=== PATIENT | female | born 1935 | race Caucasian/White ===

== ENCOUNTER 2017-01-08 07:48 | Inpatient (IN) | payer MEDICARE ==
[2017-01-08] VITALS (7 sets, daily range): BP systolic 76–111; BP diastolic 47–62
[~2017-01-08] VITALS: Ht 160 cm; Wt 152.4 kg
[2017-01-08 08:08] LABS: HCO3 ABG 25 mmol/L (21-28); PO2 ABG 129 mmHg (65-108); SAT O2 ABG 98 % (92-99)
[2017-01-08 08:10] LABS: PCO2 ABG 81 mmHg (35-46); PH ABG 7.11 (7.35-7.45)
[2017-01-08] MEDS ORDERED: MIDAZOLAM IV ONE (08:13)
[2017-01-08] MEDS ORDERED: MIDAZOLAM PREMIX 100 ML IV ONE (08:30)
--- NOTE | 2017-01-08 08:40 | RAD ---
CT brain without contrast, CT cervical spine without contrast. History: Altered mental status, fell yesterday, respiratory distress CT brain CT scan of the brain was done without contrast. There are bubbles of gas in the subcutaneous tissues on the left possibly an acute injury, clinical correlation would be of benefit. A skull fracture is not identified. There is no intracranial hemorrhage or subdural hematoma. Ventricles are normal in size. There are mucus retention cysts in the maxillary sinuses. Remaining sinuses are clear. A definite skull fracture is not evident. CT C-spine Axial CT images were obtained through the cervical spine. Sagittal and coronal reconstructed images were reviewed. Patient is not typically positioned which makes orientation the C-spine slightly different. There is motion artifact from respiration. There is degenerative change and degenerative disc disease in the cervical spine. There is an infiltrate in the right upper lobe with bilateral pleural effusions. A chest x-ray could be of benefit. There is marked facet arthritis mainly on the right. There is subluxation at C3-4-5 probably related to the facet arthritis. Acute fracture is not identified. There is mild spinal stenosis at C5-6 with disc space narrowing and spurring at that level. There is also disc space narrowing at C6-7. Impression: 1. Bubbles of gas in the soft tissues extracranially on the left. 2. No intracranial hemorrhage or acute finding noted intracranially. 3. Patient's head is rotated which is not a typical positioning for the CT C-spine. 4. No C-spine fracture noted. 5. Degenerative disc disease at C5-6 and C6-7 with spinal stenosis at C5-6. 6. Subluxation at C4-5 probably degenerative from the facet arthritis. 7. Right upper lobe infiltrate with bilateral pleural effusions. One or more of the following individualized dose reduction techniques were utilized for this examination: 1. Automated exposure control 2. Adjustment of the mA and/or kV according to patient size 3. Use of iterative reconstruction technique
[2017-01-08] MEDS ORDERED: FERR-26 PO (08:43)
[2017-01-08] MEDS ORDERED: ATOR40TA59 PO (08:43)
[2017-01-08] MEDS ORDERED: SENN8.6T99 PO (08:43)
[2017-01-08] MEDS ORDERED: FLUC150T PO (08:43)
[2017-01-08] MEDS ORDERED: POLY255P PO (08:43)
[2017-01-08] MEDS ORDERED: MAGN400O7 PO (08:43)
[2017-01-08] MEDS ORDERED: ALPR0.254 PO (08:43)
[2017-01-08] MEDS ORDERED: ASPI-630 PO (08:43)
[2017-01-08] MEDS ORDERED: MELA3TAB2 PO (08:43)
[2017-01-08] MEDS ORDERED: INSU100C SQ (08:43)
[2017-01-08] MEDS ORDERED: DILT180C2 PO (08:43)
[2017-01-08] MEDS ORDERED: NYST15PO9 TP (08:43)
[2017-01-08] MEDS ORDERED: CARV12.52 PO (08:43)
[2017-01-08] MEDS ORDERED: MAGN30OR PO (08:43)
[2017-01-08] MEDS ORDERED: HYDR-2758 PO (08:43)
[2017-01-08] MEDS ORDERED: INSU100V8 SQ (08:43)
[2017-01-08] MEDS ORDERED: CIPR250T30 PO (08:43)
[2017-01-08] MEDS ORDERED: MULT1TAB52 PO (08:43)
[2017-01-08] MEDS ORDERED: TRAZ50TA15 PO (08:43)
[2017-01-08] MEDS ORDERED: BISA10SU55 RC (08:43)
[2017-01-08] MEDS ORDERED: APIX2.5T PO (08:43)
[2017-01-08] MEDS ORDERED: LACT1CAP6 PO (08:43)
[2017-01-08] MEDS ORDERED: ALLO100T PO (08:43)
[2017-01-08] MEDS ORDERED: NA P133E2 RC (08:43)
[2017-01-08] MEDS ORDERED: CHOL10003 PO (08:43)
[2017-01-08] MEDS ORDERED: BUME2TAB PO (08:43)
[2017-01-08] MEDS ORDERED: FUROSEMIDE 40 MG/4 ML VIAL. IVP ONE (08:45)
[2017-01-08] MEDS ORDERED: VANCOMYCIN PER PHARMACY MC PRN (09:00)
[2017-01-08] MEDS ORDERED: levOFLOXacin PER PHARMACY. MC PRN (09:00)
[2017-01-08] MEDS ORDERED: PIP/TAZO PER PHARMACY MC PRN (09:00)
--- NOTE | 2017-01-08 09:03 | RAD ---
AP chest. History: Short of air AP view was taken of the chest. The heart is enlarged. There is pulmonary vascular congestion. There are bilateral effusions. There is atelectasis or infiltrate or edema in the lung bases. Impression: 1. Cardiomegaly and vascular congestion suggests heart failure. 2. Bilateral effusions. 3. Atelectasis or infiltrate in the lung bases.
[2017-01-08] MEDS ORDERED: PIPERACILLIN/TAZOBACTAM 4.5 GM in IV NORMAL SALINE 100ML 100 ML IV ONE (09:15)
[2017-01-08] MEDS ORDERED: MORPHINE SULFATE 2 MG/ML DISP.SYRIN. IV PRN ×2 (09:15→16:15)
[2017-01-08] MEDS ORDERED: VANCOMYCIN 2 GM in IV NORMAL SALINE 500ML BAG 500 ML IV ONE (09:15)
[2017-01-08] MEDS ORDERED: ONDANSETRON PF 4 MG/2 ML VIAL. IV PRN ×2 (09:15→16:15)
[2017-01-08] MEDS ORDERED: ACETAMINOPHEN 325 MG TABLET. PO PRN ×2 (09:15→16:15)
[2017-01-08] MEDS ORDERED: IPRATRPIUM/ALBUTEROL 0.5/2.5MG 3 ML NEBU. NEB ONE (09:30)
[2017-01-08] MEDS ORDERED: methylPREDNISolone SOD SUCC PF 125 MG/2 ML VIAL. IV ONE (09:30)
[2017-01-08 09:33] LABS: BILIRUBIN,URINE NEGATIVE (NEG); GLUCOSE,URINE 100 mg/dL (NEG); NITRITE,URINE NEGATIVE (NEG); PROTEIN,URINE NEGATIVE (NEG-TRACE); UROBILINOGEN,URINE 0.2 mg/dL (0.2 mg/dL)
[2017-01-08] MEDS ORDERED: DEXTROSE 50% 25 GM / 50ML DISP.SYRIN. IV PRN ×2 (09:45→16:30)
[2017-01-08 09:48] LABS: ETHANOL < 10 mg/dL (0-10)
[2017-01-08 09:49] LABS: ALBUMIN 2.9 g/dL (3.4-5.0); CALCIUM 9.1 mg/dL (8.5-10.1); CREATININE 2.2 mg/dL (0.6-1.0); GFR 21.5; MAGNESIUM 2.2 mg/dL (1.8-2.4); TOTAL BILIRUBIN 0.3 mg/dL (0.2-1.0)
[2017-01-08 09:51] LABS: BACTERIA,URINE 0 /HPF (0-FEW); RBC,URINE 0 /HPF (0-2); SQUAMOUS EPITHELIAL CELL,UR FEW /LPF; WBC,URINE 0 /HPF (0-4)
[2017-01-08 09:55] LABS: BARBITURATES NEG (NEG); BENZODIAZEPINES NEG (NEG); CANNABINOIDS NEG (NEG); COCAINE NEG (NEG); METHADONE NEG (NEG); OPIATES POS (NEG); PHENCYCLIDINE NEG (NEG)
[2017-01-08 09:55] LABS: TOTAL PROTEIN 5.7 g/dL (6.4-8.2)
[2017-01-08 10:00] LABS: INR 1.2 (0.8-1.1); PROTHROMBIN TIME PATIENT 14.7 SEC (11.7-14.0)
[2017-01-08 10:09] LABS: CORRECTED PCO2 ABG 36 mmHg; CORRECTED PH ABG 7.41; CORRECTED PO2 ABG 135 mmHg; HCO3 ABG 23 mmol/L (21-28); PCO2 ABG 40 mmHg (35-46); PH ABG 7.37 (7.35-7.45); PO2 ABG 150 mmHg (65-108); SAT O2 ABG 99 % (92-99)
[2017-01-08 10:19] LABS: POTASSIUM 5.9 mmol/L (3.5-5.1)
--- NOTE | 2017-01-08 10:42 | EKG ---
[facility] [address] [place] [address] Test Date: 2017-01-08 Test Time: 08:59:40 Pat Name: HECTOR GONSALES Department: Room: Gender: F Trim Technician: : [id number] Requested By: ABEL MOORE Order Number: [id number] Reading MD: Measurements Intervals [place] Rate: 94 P: DC: QRS: -41 QRSD: 128 T: 165 QT: 382 QTc: 478 Interpretive Statements IRREGULAR RHYTHM, NO P-WAVE FOUND ABNORMAL LEFT AXIS DEVIATION LOW LIMB LEAD VOLTAGE NON SPECIFIC INTRAVENTRICULAR BLOCK QRS(T) CONTOUR ABNORMALITY CONSISTENT WITH ANTEROSEPTAL INFARCT PROBABLY OLD CONSISTENT WITH INFERIOR INFARCT PROBABLY OLD ABNORMAL ECG RI6.01 No previous ECG available for comparison
[2017-01-08] MEDS ORDERED: NALOXONE 2 MG/2 ML DISP.SYRIN. IV ONE (10:45)
[2017-01-08] MEDS: IPRATRPIUM/ALBUTEROL 0.5/2.5MG 3 ML NEBU. NEB SCH ×2 (11:51→15:28)
[2017-01-08] MEDS ORDERED: INSULIN ASPART 300 UNITS/3 ML INSULN.PEN SQ SCH ×2 (12:00→17:00)
--- NOTE | 2017-01-08 12:23 | PDOC2 ---
CONSULT Date of Consult Date of Consult DATE: 01/08/17 TIME: 12:12 Reason for Consult Reason for Consult: Resp failure Referring Physician Referring Physician: Dr Pitts Identification/Chief Complaint Chief Complaint altered MS Problems: History of Present Illness Reason for Visit: Ayesha is 81-year-old female who is morbidly obese and [facility] 2 [facility] emergency room with altered mental status. She was not hypoxic and was having 100% saturations on admission. Arterial blood gases obtained showed a pH of 7.11 PCO2 of 81. And a PaO2 of 129 with a bicarbonate of 25 100% FiO2. Patient was also using narcotics at the [facility], [place]. At that time decision was made to hold off on intubation and try BiPAP. She was placed on IPAP of 26 with a EPAP of 6 and a respiratory rate of 24. When her mental status. Gases revealed a pH of 7.37 with a PCO2 of 40 and a PO2 of 150 on 40% FiO2. Commands. Since chest x- ray was consistent with bilateral infiltrates and right lower lobe effusion. X- ray available for comparison. Highly abnormal labs with patient when of 95 and a creatinine of 2.2 and a potassium of 5.9. She had mildly increased troponin level. The recent fall and as her results CT head and CT spine was also performed. He was noted to have gas bubble in the soft tissues extracranially on her CT head. She did receive Narcan which did improve her mental status as well. His of care unit for further evaluation. I've spoken to the family was at the bedside and explained to them her critical illness. Past Medical History Pulmonary: No pertinent hx, Other (suspected KAYLEIGH) GI: No pertinent hx Heme/Onc: No pertinent hx Past Surgical History Past Surgical History no recent surgeries Family History Family History non contributry to lungs Social History # pack years (5-10) Current Problem List Problem List Problems Medical Problems: (1) Acute respiratory failure Status: Acute Current Medications Current Medications Current Medications Midazolam HCl 100 ml @ As Directed STK-MED ONCE IV ; Start 01/08/17 at 08:13; Stop 01/08/17 at 08:14; Status DC Midazolam HCl 100 ml @ 0 mls/hr 1X ONCE IV ; Start 01/08/17 at 08:30; Stop at 08:31; Status DC Furosemide (Lasix) 80 mg 1X ONCE IVP Last administered on 01/08/17 09:30; Start 01/08/17 at 08:45; Stop 01/08/17 at 08:46; Status DC Vancomycin HCl (Vanco Per Pharmacy) 1 each PRN DAILY PRN MC SEE COMMENTS; Start 01/08/17 at 09:00 Piperacillin Sod/ Tazobactam Sod (Zosyn Per Pharmacy) 1 each PRN DAILY PRN MC SEE COMMENTS; Start 01/08/17 at 09:00 Levofloxacin/ Dextrose (Levaquin Per Pharmacy) 1 each PRN DAILY PRN MC SEE COMMENTS; Start 01/08/17 at 09:00 Vancomycin HCl 2 gm/Sodium Chloride 500 ml @ 250 mls/hr 1X ONCE IV ; Start at 09:15; Stop 01/08/17 at 11:14; Status DC Levofloxacin/ Dextrose 150 ml @ 100 mls/hr 1X ONCE IV Last administered on 10:22; Start 01/08/17 at 09:15; Stop 01/08/17 at 10:44; Status DC Piperacillin Sod/ Tazobactam Sod 4.5 gm/Sodium Chloride 100 ml @ 200 mls/hr 1X ONCE IV Last administered on 01/08/17 09:49; Start 01/08/17 at 09:15; Stop 01/08/17 at 09:44; Status DC Ondansetron HCl (Zofran) 4 mg PRN Q8HRS PRN IV NAUSEA/VOMITING; Start 01/08/17 at 09:15; Stop 01/09/17 at 09:14 Morphine Sulfate 2 mg PRN Q2HR PRN IV PAIN; Start 01/08/17 at 09:15; Stop 01/09 at 09:14 Acetaminophen (Tylenol) 650 mg PRN Q4HRS PRN PO FEVER; Start 01/08/17 at 09:15 ; Stop 01/09/17 at 09:14 Albuterol/ Ipratropium (Duoneb) 3 ml RTQID NEB Last administered on 01/08/17 11:51; Start 01/08/17 at 12:00; Stop 01/09/17 at 11:59 Methylprednisolone Sodium Succinate (SOLU-Medrol 125MG VIAL) 125 mg 1X ONCE IV ; Start 01/08/17 at 09:30; Stop 01/08/17 at 09:41; Status DC Albuterol/ Ipratropium (Duoneb) 3 ml 1X ONCE NEB ; Start 01/08/17 at 09:30; Stop 01/08/17 at 09:39; Status DC Insulin Aspart (NovoLOG) 0-5 UNITS TIDWMEALS SQ ; Start 01/08/17 at 12:00 Dextrose (Dextrose 50%-Water Syringe) 12.5 gm PRN Q15MIN PRN IV SEE COMMENTS; Start 01/08/17 at 09:45 Naloxone HCl (Narcan) 2 mg 1X ONCE IV Last administered on 01/08/17t 08:07; Start 01/08/17 at 10:45; Stop 01/08/17 at 10:50; Status DC Active Scripts Active Reported Milk Of Magnesia (Magnesium Hydroxide) 400 Mg/5 Ml Oral.susp 30 Ml PO DAILY PRN Mag-Al Liquid (Magnesium Hydroxide/Al Hydrox) 30 Ml Oral.susp 30 Ml PO Q4HRS PRN Fleet Enema (Na Phos,M-B/Na Phos,Di-Ba) 133 Ml Enema 1 Each RC DAILY PRN Dulcolax (Bisacodyl) 10 Mg Supp.rect 10 Mg RC PRN DAILY PRN Alprazolam 0.25 Mg Tablet 1 Tab PO TID PRN Hydrocodone-Apap 5-325 (Hydrocodone Bit/Acetaminophen) 1 Each Tablet 1 Tab PO PRN Q6HRS PRN Atorvastatin Calcium 40 Mg Tablet 1 Tab PO QHS Carvedilol 12.5 Mg Tablet 1 Tab PO BID Aspirin 81 Mg Tab.chew 1 Tab PO DAILY Vitamin D3 (Cholecalciferol (Vitamin D3)) 1,000 Unit Tablet 1 Tab PO DAILY Cardizem Cd (Diltiazem Hcl) 180 Mg Cap.er.24h 1 Cap PO DAILY Humalog (Insulin Lispro) 100 Unit/1 Ml Cartridge 2-10 Unit SQ TID Ferrous Sulfate 325 Mg Tablet 1 Tab PO DAILY Allopurinol 100 Mg Tablet 1 Tab PO DAILY Nystatin 15 Gm Powder 1 Agnieszka TP BID Probiotic (Lactobacillus Acidophilus) 1 Each Capsule 1 Each PO BID Melatonin 3 Mg Tablet 5 Mg PO QHS Eliquis (Apixaban) 2.5 Mg Tablet 2.5 Mg PO BID Multivitamins (Multivitamin) 1 Each Tablet 1 Tab PO DAILY Bumetanide 2 Mg Tablet 1 Tab PO BID Polyethylene Glycol 3350 255 Gm Powder 17 Gm PO TID Trazodone Hcl 50 Mg Tablet 1 Tab PO QHS Senokot (Sennosides) 8.6 Mg Tablet 1 Tab PO BID Lantus (Insulin Glargine,Hum.rec.anlog) 100 Unit/1 Ml Vial 18 Unit SQ QHS Cipro (Ciprofloxacin Hcl) 250 Mg Tablet 1 Tab PO BID Diflucan (Fluconazole) 150 Mg Tablet 150 Mg PO DAILY Allergies Allergies: Coded Allergies: No Known Drug Allergies (Unverified , 01/08/17) ROS Review of System as discussed in my h/o present illness Physical Exam General: No acute distress HEENT: Atraumatic Lungs: Other (decrease bs) Heart: Regular rate Abdomen: Soft, Other (obese, edema of abdominal wall) Extremities: No clubbing, Other (2+edema) Skin: No rashes Vitals VITALS Vital Signs Date Time Temp Pulse Resp B/P (MAP) Pulse Ox O2 Delivery O2 Flow Rate FiO2 01/08/17 11:46 100 BiPAP/CPAP 01/08/17 09:39 88 27 141/62 (88) 01/08/17 07:48 94.4 94.4 Labs Labs Laboratory Tests Test 01/08/17 08:00 01/08/17 09:05 01/08/17 09:19 01/08/17 09:31 O2 Saturation 98 % (92-99) Arterial Blood pH 7.11 (7.35-7.45) Arterial Blood pCO2 at Patient Temp 81 mmHg (35-46) Arterial Blood pO2 at Patient Temp 129 mmHg (65-108) Arterial Blood HCO3 25 mmol/L (21-28) Arterial Blood Base Excess -6 mmol/L (-3-3) FiO2 100.0 Prothrombin Time 14.7 SEC (11.7-14.0) Prothromb Time International Ratio 1.2 (0.8-1.1) Activated Partial Thromboplast Time 23 SEC (24-38) Sodium Level 133 mmol/L (136-145) Potassium Level 5.9 mmol/L (3.5-5.1) Chloride Level 99 mmol/L (98-107) Carbon Dioxide Level 30 mmol/L (21-32) Anion Gap 4 (6-14) Blood Urea Nitrogen 95 mg/dL (7-20) Creatinine 2.2 mg/dL (0.6-1.0) Estimated GFR (Cockcroft-Gault) 21.5 BUN/Creatinine Ratio 43 (6-20) Glucose Level 356 mg/dL (70-99) Lactic Acid Level 0.8 mmol/L (0.4-2.0) Calcium Level 9.1 mg/dL (8.5-10.1) Magnesium Level 2.2 mg/dL (1.8-2.4) Total Bilirubin 0.3 mg/dL (0.2-1.0) Aspartate Amino Transf (AST/SGOT) 48 U/L (15-37) Alanine Aminotransferase (ALT/SGPT) 68 U/L (14-59) Alkaline Phosphatase 174 U/L (46-116) Troponin I Quantitative 0.019 ng/mL (0.000-0.055) ZB-Xeh-G-Type Natriuretic Peptide 6708 pg/mL (0-449) Total Protein 5.7 g/dL (6.4-8.2) Albumin 2.9 g/dL (3.4-5.0) Albumin/Globulin Ratio 1.0 (1.0-1.7) Salicylates Level < 2.8 mg/dL (2.8-20.0) Salicylate Last Dose Date Unknown Salicylate Last Dose Time Unknown Acetaminophen Level 2.6 mcg/ml (10-30) Acetaminophen Last Dose Date Unknown Acetaminophen Last Dose Time Unknown Ethyl Alcohol Level < 10 mg/dL (0-10) Urine Collection Type U cath Urine Color Yellow Urine Clarity Turbid Urine pH 5.0 Urine Specific [place] 1.015 Urine Protein Negative mg/dL (NEG-TRACE) Urine Glucose (UA) 100 mg/dL (NEG) Urine Ketones (Stick) Negative mg/dL (NEG) Urine Blood Small (NEG) Urine Nitrite Negative (NEG) Urine Bilirubin Negative (NEG) Urine Urobilinogen Dipstick 0.2 mg/dL (0.2 mg/dL) Urine Leukocyte Esterase Negative (NEG) Urine RBC 0 /HPF (0-2) Urine WBC 0 /HPF (0-4) Urine Squamous Epithelial Cells Few /LPF Urine Amorphous Sediment Present /HPF Urine Bacteria 0 /HPF (0-FEW) Urine Opiates Screen Pos (NEG) Urine Methadone Screen Neg (NEG) Urine Barbiturates Neg (NEG) Urine Phencyclidine Screen Neg (NEG) Urine Amphetamine/Methamphetamine Neg (NEG) Urine Benzodiazepines Screen Neg (NEG) Urine Cocaine Screen Neg (NEG) Urine Cannabinoids Screen Neg (NEG) Urine Ethyl Alcohol Neg (NEG) Glucose (Fingerstick) 289 mg/dL (70-99) Test 01/08/17 10:00 O2 Saturation 99 % (92-99) Arterial Blood pH 7.37 (7.35-7.45) Arterial Blood pH (Temp corrected) 7.41 Arterial Blood pCO2 at Patient Temp 40 mmHg (35-46) Arterial Blood pCO2 (Temp correct) 36 mmHg Arterial Blood pO2 at Patient Temp 150 mmHg (65-108) Arterial Blood pO2 (Temp corrected) 135 mmHg Arterial Blood HCO3 23 mmol/L (21-28) Arterial Blood Base Excess -3 mmol/L (-3-3) FiO2 40.0 Laboratory Tests Test 01/08/17 08:00 01/08/17 09:05 01/08/17 09:19 01/08/17 09:31 O2 Saturation 98 % (92-99) Arterial Blood pH 7.11 (7.35-7.45) Arterial Blood pCO2 at Patient Temp 81 mmHg (35-46) Arterial Blood pO2 at Patient Temp 129 mmHg (65-108) Arterial Blood HCO3 25 mmol/L (21-28) Arterial Blood Base Excess -6 mmol/L (-3-3) FiO2 100.0 Prothrombin Time 14.7 SEC (11.7-14.0) Prothromb Time International Ratio 1.2 (0.8-1.1) Activated Partial Thromboplast Time 23 SEC (24-38) Sodium Level 133 mmol/L (136-145) Potassium Level 5.9 mmol/L (3.5-5.1) Chloride Level 99 mmol/L (98-107) Carbon Dioxide Level 30 mmol/L (21-32) Anion Gap 4 (6-14) Blood Urea Nitrogen 95 mg/dL (7-20) Creatinine 2.2 mg/dL (0.6-1.0) Estimated GFR (Cockcroft-Gault) 21.5 BUN/Creatinine Ratio 43 (6-20) Glucose Level 356 mg/dL (70-99) Lactic Acid Level 0.8 mmol/L (0.4-2.0) Calcium Level 9.1 mg/dL (8.5-10.1) Magnesium Level 2.2 mg/dL (1.8-2.4) Total Bilirubin 0.3 mg/dL (0.2-1.0) Aspartate Amino Transf (AST/SGOT) 48 U/L (15-37) Alanine Aminotransferase (ALT/SGPT) 68 U/L (14-59) Alkaline Phosphatase 174 U/L (46-116) Troponin I Quantitative 0.019 ng/mL (0.000-0.055) KV-Ccb-X-Type Natriuretic Peptide 6708 pg/mL (0-449) Total Protein 5.7 g/dL (6.4-8.2) Albumin 2.9 g/dL (3.4-5.0) Albumin/Globulin Ratio 1.0 (1.0-1.7) Salicylates Level < 2.8 mg/dL (2.8-20.0) Salicylate Last Dose Date Unknown Salicylate Last Dose Time Unknown Acetaminophen Level 2.6 mcg/ml (10-30) Acetaminophen Last Dose Date Unknown Acetaminophen Last Dose Time Unknown Ethyl Alcohol Level < 10 mg/dL (0-10) Urine Collection Type U cath Urine Color Yellow Urine Clarity Turbid Urine pH 5.0 Urine Specific [place] 1.015 Urine Protein Negative mg/dL (NEG-TRACE) Urine Glucose (UA) 100 mg/dL (NEG) Urine Ketones (Stick) Negative mg/dL (NEG) Urine Blood Small (NEG) Urine Nitrite Negative (NEG) Urine Bilirubin Negative (NEG) Urine Urobilinogen Dipstick 0.2 mg/dL (0.2 mg/dL) Urine Leukocyte Esterase Negative (NEG) Urine RBC 0 /HPF (0-2) Urine WBC 0 /HPF (0-4) Urine Squamous Epithelial Cells Few /LPF Urine Amorphous Sediment Present /HPF Urine Bacteria 0 /HPF (0-FEW) Urine Opiates Screen Pos (NEG) Urine Methadone Screen Neg (NEG) Urine Barbiturates Neg (NEG) Urine Phencyclidine Screen Neg (NEG) Urine Amphetamine/Methamphetamine Neg (NEG) Urine Benzodiazepines Screen Neg (NEG) Urine Cocaine Screen Neg (NEG) Urine Cannabinoids Screen Neg (NEG) Urine Ethyl Alcohol Neg (NEG) Glucose (Fingerstick) 289 mg/dL (70-99) Test 01/08/17 10:00 O2 Saturation 99 % (92-99) Arterial Blood pH 7.37 (7.35-7.45) Arterial Blood pH (Temp corrected) 7.41 Arterial Blood pCO2 at Patient Temp 40 mmHg (35-46) Arterial Blood pCO2 (Temp correct) 36 mmHg Arterial Blood pO2 at Patient Temp 150 mmHg (65-108) Arterial Blood pO2 (Temp corrected) 135 mmHg Arterial Blood HCO3 23 mmol/L (21-28) Arterial Blood Base Excess -3 mmol/L (-3-3) FiO2 40.0 Assessment/Plan Assessment/Plan Impression 1. Acute hypercapnic respiratory failure second to multifactorial H allergies includes a combination of use of narcotics as well as right heart failure and possible pneumonia. 2. Acute encephalopathy agree to hypercapnia which may be related to combination of pneumonia and heart failure/pneumonia/uremia. 3. Acute renal failure with hyperkalemia 4. Suspected sleep apnea/obesity hypoventilation syndrome 5. Suspected acute right heart failure 6. Abnormal chest x-ray with bilateral interstitial infiltrates and right lower lobe effusion. Right heart failure but cannot exclude pneumonia. Will benefit from CT chest once clinically stable 7. Abnormal CT head with bubble in soft tissues extracranially follow neurology recommendations 8. Minimal history of tobacco use Recommendations 1. Continue present BiPAP until mental status improves. Her arterial blood gases of already improved. 2. Hold off on diuresis due to acute renal failure 3. Add empiric antibiotics. 4. Fall precautions. 5. Consult nephrology and follow their recommendations. 6. Management of hyperkalemia per renal. 7. DVT prophylaxis. 8. CT chest to better evaluate for lung parenchymal process once clinically stable. Discussed with ER physician, patients family , RN/RT Critical care time 50 minutes TERESA MORENO MD Jan 08, 2017 12:23
--- NOTE | 2017-01-08 13:33 | RAD ---
One or more of the following individualized dose reduction techniques were utilized for this examination: 1. Automated exposure control 2. Adjustment of the mA and/or kV according to patient size 3. Use of iterative reconstruction technique CT facial bones. History: Subcutaneous air Axial CT images were obtained through the facial bones. Mandible is intact. There is a mucous retention cyst or mucosal thickening in each maxillary sinus. A facial fracture is not identified. Frontal and ethmoid sinuses are clear as are the sphenoid sinuses. Mastoids are normally aerated. Soft tissue window images show bubbles of gas in the soft tissues bilaterally. Bubbles are clearly within vascular spaces on some images the most likely etiology would be an air embolization. There are bubbles of gas adjacent to the submandibular gland on the left and the extracranial soft tissues the temporal region on the right and on the left again in the vascular spaces. There is a single bubble of air intracranially near the sella. A soft tissue mass is not identified in the facial region. Impression: 1. Bubbles of gas appear intravascular from embolization. 2. Mucosal thickening in the maxillary sinuses. 3. No facial fracture noted.
[2017-01-08 13:41] LABS: BASO % 0 % (0-3); EOS % 0 % (0-3); HEMATOCRIT 32.3 % (36.0-47.0); HEMOGLOBIN 10.6 g/dL (12.0-15.5); LYMPH # 0.5 x10^3/uL (1.0-4.8); LYMPH % 5 % (24-48); MEAN CORPUSCULAR HEMOGLOBIN 34 pg (25-35); MEAN CORPUSCULAR HGB CONC 33 g/dL (31-37); MEAN CORPUSCULAR VOLUME 102 fL (79-100); MONO % 4 % (0-9); NEUT % 90 % (31-73); PLATELET COUNT 159 x10^3/uL (140-400); RED BLOOD COUNT 3.15 x10^6/uL (3.50-5.40); WHITE BLOOD COUNT 10.1 x10^3/uL (4.0-11.0)
--- NOTE | 2017-01-08 13:57 | PHYS DOC ---
Past Medical History Past Medical History: A-Fib, Anemia, Anxiety, CHF, Constipation, COPD, Depression, Diabetes-Type II, High Cholesterol, Hypertension, Renal Disease, UTI Alcohol Use: None Drug Use: None Adult General Chief Complaint Chief Complaint: ALTERED MENTAL STATUS HPI HPI Patient is a 81 year old female who presents with altered mental status. The patient is brought by EMS from [facility] where she reportedly was found with depressed mental status this morning. She had respiratory depression with low oxygen saturation. History limited due to patient's clinical condition. Transported via EMS with nonrebreather in place. Review of Systems Review of Systems unable to obtain due to clinical condition. Current Medications Current Medications Current Medications Medications (Trade) Dose Ordered Sig/Maria G Start Time Stop Time Status Last Admin Dose Admin Midazolam HCl 100 ml @ As Directed STK-MED ONCE 01/08/17 08:13 01/08/17 08:14 DC Physical Exam Physical Exam Constitutional: obese, anasarca, altered, lethargic HENT: Normocephalic, atraumatic, bilateral external ears normal, oropharynx moist, nose normal. Eyes: pupils minimally reactive 3 mm bilaterally, conjunctiva normal, no discharge. Neck: supple, no stridor. Cardiovascular: RRR, anasarca. Lungs & Thorax: coarse/crackles, diminished, tachypneic Abdomen: soft, nontender, nondistended. Skin: bilateral lower extremity erythema Back: No tenderness. Extremities: 4+ pitting edema to bilateral lower extremities Neurologic: GCS 8 on arrival, not following commands, opens eyes with sternal rub, moaning Psychologic: unable to assess due to clinical condition. Current Patient Data Vital Signs Vital Signs Date Time Temp Pulse Resp B/P (MAP) Pulse Ox O2 Delivery O2 Flow Rate FiO2 01/08/17 08:03 78 123/59 (80) 98 BiPAP/CPAP 01/08/17 07:48 94.4 22 94.4 Lab Values Laboratory Tests Test 01/08/17 08:00 O2 Saturation 98 % (92-99) Arterial Blood pH 7.11 (7.35-7.45) *L Arterial Blood pCO2 at Patient Temp 81 mmHg (35-46) *H Arterial Blood pO2 at Patient Temp 129 mmHg (65-108) H Arterial Blood HCO3 25 mmol/L (21-28) Arterial Blood Base Excess -6 mmol/L (-3-3) L FiO2 100.0 EKG EKG interpreted by me: irregular rate 94, no STEMI, intraventricular block Radiology/Procedures Radiology/Procedures PROCEDURE: CT HEAD AND CERVICAL SPINE WO CT brain without contrast, CT cervical spine without contrast. History: Altered mental status, fell yesterday, respiratory distress CT brain CT scan of the brain was done without contrast. There are bubbles of gas in the subcutaneous tissues on the left possibly an acute injury, clinical correlation would be of benefit. A skull fracture is not identified. There is no intracranial hemorrhage or subdural hematoma. Ventricles are normal in size. There are mucus retention cysts in the maxillary sinuses. Remaining sinuses are clear. A definite skull fracture is not evident. CT C-spine Axial CT images were obtained through the cervical spine. Sagittal and coronal reconstructed images were reviewed. Patient is not typically positioned which makes orientation the C-spine slightly different. There is motion artifact from respiration. There is degenerative change and degenerative disc disease in the cervical spine. There is an infiltrate in the right upper lobe with bilateral pleural effusions. A chest x-ray could be of benefit. There is marked facet arthritis mainly on the right. There is subluxation at C3-4-5 probably related to the facet arthritis. Acute fracture is not identified. There is mild spinal stenosis at C5-6 with disc space narrowing and spurring at that level. There is also disc space narrowing at C6-7. Impression: 1. Bubbles of gas in the soft tissues extracranially on the left. 2. No intracranial hemorrhage or acute finding noted intracranially. 3. Patient's head is rotated which is not a typical positioning for the CT C-spine. 4. No C-spine fracture noted. 5. Degenerative disc disease at C5-6 and C6-7 with spinal stenosis at C5-6. 6. Subluxation at C4-5 probably degenerative from the facet arthritis. 7. Right upper lobe infiltrate with bilateral pleural effusions. One or more of the following individualized dose reduction techniques were utilized for this examination: 1. Automated exposure control 2. Adjustment of the mA and/or kV according to patient size 3. Use of iterative reconstruction technique DICTATED and SIGNED BY: DNAIKA CALVERT MD DATE: 01/08/17 0831 PROCEDURE: CHEST AP ONLY AP chest. History: Short of air AP view was taken of the chest. The heart is enlarged. There is pulmonary vascular congestion. There are bilateral effusions. There is atelectasis or infiltrate or edema in the lung bases. Impression: 1. Cardiomegaly and vascular congestion suggests heart failure. 2. Bilateral effusions. 3. Atelectasis or infiltrate in the lung bases. DICTATED and SIGNED BY: DANIKA CALVERT MD DATE: 01/08/17 0900 Course & Med Decision Making Course & Med Decision Making Pertinent Labs and Imaging studies reviewed. (See chart for details) The patient presents with altered mental status & respiratory distress. Continued O2 by NRB. Difficult IV access, ultimately RN placed left humeral IO. After IV access was secured, administered 2 mg of narcan with intention of intubating if no change. She was transferred briefly to CT to evaluate for intracranial injury or c-spine injury; reportedly there was history of a fall yesterday but details not provided. This was negative for intracranial injury or c-spine fracture. Upon return from CT, she was able to answer questions, was A&O to person & year, following commands, moving all extremities. ABG showed pH of 7.1, CO2 80. Due to improvement in mentation, initiated BiPAP with plan to intubate if any worsening of mental status or if repeat ABG worsened. She continued to improve on BiPAP & repeat ABG was normalizing. She was found to be hypothermic & shayy hugger was applied. She received nebulized breathing treatments, solumedrol, lasix, broad spectrum antibiotics for suspected healthcare associated pneumonia. She meets SIRS criteria but due to anasarca she did not receive aggressive IV fluid hydration per severe sepsis protocol. Certainly she will require some intravascular repletion during her course as she is diuresed. Consulted Dr. Holman of cardiology & Dr. Navarrete of pulmonary. Discussed with Dr. Pitts who agrees to admit to inpatient status. The patient had finding of subcutaneous air on her CT scan of her head, with no evidence of scalp laceration. Ordered maxillofacial CT at time of admit to assess for facial fracture. This is pending at time of admission. She is admitted to the ICU in improved but critical condition. [] Dragon Disclaimer Dragon Disclaimer This electronic medical record was generated, in whole or in part, using a voice recognition dictation system. Departure Departure Impression: Primary Impression: Acute respiratory failure Additional Impressions: Altered mental status Sepsis Anasarca Congestive heart failure Healthcare associated bacterial pneumonia Acute renal failure Hyperglycemia Disposition: 09 ADMITTED INPATIENT Admitting Physician: Tabatha Pitts Condition: STABLE Referrals: UNKNOWN PCP NAME (PCP) Problem Qualifiers ABEL MOORE MD Jan 08, 2017 13:57
--- NOTE | 2017-01-08 14:22 | PDOC2 ---
CONSULT Date of Consult Date of Consult DATE: 01/08/17 TIME: 14:07 Reason for Consult Reason for Consult: Probable acute heart failure Referring Physician Referring Physician: Dr. Pitts Identification/Chief Complaint Chief Complaint Decreased mental status Problems: Source Source: Chart review History of Present Illness Reason for Visit: The patient is a morbidly obese 81-year-old female who was transferred from a local nursing facility due to increasing shortness of breath and decreased mental status. Upon arrival in the emergency room the patient was placed on BiPAP and attempt to avoid intubation. Initial blood gas showed pH of 7.11. The present time she is doing better on BiPAP. She also was given Narcan with some improvement of her underlying mental status. Initial blood test available at this time include a BNP of 6708, troponin of 0.019 potassium of 5.9 and creatinine of 2.2. AG shows atrial fibrillation with anterior Q waves but no acute ST segment changes. Patient also reportedly had a fall and a CT head scan is pending. At the present time there is no family available. There are no old records available and the patient cannot respond to questions. Past Medical History Pulmonary: No pertinent hx, COPD, Other (suspected KAYLEIGH) GI: No pertinent hx Heme/Onc: No pertinent hx Past Surgical History Past Surgical History History unknown Family History Family History Not available Social History Social History Not obtainable # pack years (5-10) Current Problem List Problem List Problems Medical Problems: (1) Acute respiratory failure Status: Acute Current Medications Current Medications Current Medications Midazolam HCl 100 ml @ As Directed STK-MED ONCE IV ; Start 01/08/17 at 08:13; Stop 01/08/17 at 08:14; Status DC Midazolam HCl 100 ml @ 0 mls/hr 1X ONCE IV ; Start 01/08/17 at 08:30; Stop at 08:31; Status DC Furosemide (Lasix) 80 mg 1X ONCE IVP Last administered on 01/08/17t 09:30; Start 01/08/17 at 08:45; Stop 01/08/17 at 08:46; Status DC Vancomycin HCl (Vanco Per Pharmacy) 1 each PRN DAILY PRN MC SEE COMMENTS; Start 01/08/17 at 09:00 Piperacillin Sod/ Tazobactam Sod (Zosyn Per Pharmacy) 1 each PRN DAILY PRN MC SEE COMMENTS; Start 01/08/17 at 09:00 Levofloxacin/ Dextrose (Levaquin Per Pharmacy) 1 each PRN DAILY PRN MC SEE COMMENTS; Start 01/08/17 at 09:00 Vancomycin HCl 2 gm/Sodium Chloride 500 ml @ 250 mls/hr 1X ONCE IV ; Start at 09:15; Stop 01/08/17 at 11:14; Status DC Levofloxacin/ Dextrose 150 ml @ 100 mls/hr 1X ONCE IV Last administered on 10:22; Start 01/08/17 at 09:15; Stop 01/08/17 at 10:44; Status DC Piperacillin Sod/ Tazobactam Sod 4.5 gm/Sodium Chloride 100 ml @ 200 mls/hr 1X ONCE IV Last administered on 01/08/17 09:49; Start 01/08/17 at 09:15; Stop 01/08/17 at 09:44; Status DC Ondansetron HCl (Zofran) 4 mg PRN Q8HRS PRN IV NAUSEA/VOMITING; Start 01/08/17 at 09:15; Stop 01/09/17 at 09:14 Morphine Sulfate 2 mg PRN Q2HR PRN IV PAIN; Start 01/08/17 at 09:15; Stop 01/09 at 09:14 Acetaminophen (Tylenol) 650 mg PRN Q4HRS PRN PO FEVER; Start 01/08/17 at 09:15 ; Stop 01/09/17 at 09:14 Albuterol/ Ipratropium (Duoneb) 3 ml RTQID NEB Last administered on 01/08/17 11:51; Start 01/08/17 at 12:00; Stop 01/09/17 at 11:59 Methylprednisolone Sodium Succinate (SOLU-Medrol 125MG VIAL) 125 mg 1X ONCE IV ; Start 01/08/17 at 09:30; Stop 01/08/17 at 09:41; Status DC Albuterol/ Ipratropium (Duoneb) 3 ml 1X ONCE NEB ; Start 01/08/17 at 09:30; Stop 01/08/17 at 09:39; Status DC Insulin Aspart (NovoLOG) 0-5 UNITS TIDWMEALS SQ ; Start 01/08/17 at 12:00 Dextrose (Dextrose 50%-Water Syringe) 12.5 gm PRN Q15MIN PRN IV SEE COMMENTS; Start 01/08/17 at 09:45 Naloxone HCl (Narcan) 2 mg 1X ONCE IV Last administered on 01/08/17t 08:07; Start 01/08/17 at 10:45; Stop 01/08/17 at 10:50; Status DC Active Scripts Active Reported Milk Of Magnesia (Magnesium Hydroxide) 400 Mg/5 Ml Oral.susp 30 Ml PO DAILY PRN Mag-Al Liquid (Magnesium Hydroxide/Al Hydrox) 30 Ml Oral.susp 30 Ml PO Q4HRS PRN Fleet Enema (Na Phos,M-B/Na Phos,Di-Ba) 133 Ml Enema 1 Each RC DAILY PRN Dulcolax (Bisacodyl) 10 Mg Supp.rect 10 Mg RC PRN DAILY PRN Alprazolam 0.25 Mg Tablet 1 Tab PO TID PRN Hydrocodone-Apap 5-325 (Hydrocodone Bit/Acetaminophen) 1 Each Tablet 1 Tab PO PRN Q6HRS PRN Atorvastatin Calcium 40 Mg Tablet 1 Tab PO QHS Carvedilol 12.5 Mg Tablet 1 Tab PO BID Aspirin 81 Mg Tab.chew 1 Tab PO DAILY Vitamin D3 (Cholecalciferol (Vitamin D3)) 1,000 Unit Tablet 1 Tab PO DAILY Cardizem Cd (Diltiazem Hcl) 180 Mg Cap.er.24h 1 Cap PO DAILY Humalog (Insulin Lispro) 100 Unit/1 Ml Cartridge 2-10 Unit SQ TID Ferrous Sulfate 325 Mg Tablet 1 Tab PO DAILY Allopurinol 100 Mg Tablet 1 Tab PO DAILY Nystatin 15 Gm Powder 1 Agnieszka TP BID Probiotic (Lactobacillus Acidophilus) 1 Each Capsule 1 Each PO BID Melatonin 3 Mg Tablet 5 Mg PO QHS Eliquis (Apixaban) 2.5 Mg Tablet 2.5 Mg PO BID Multivitamins (Multivitamin) 1 Each Tablet 1 Tab PO DAILY Bumetanide 2 Mg Tablet 1 Tab PO BID Polyethylene Glycol 3350 255 Gm Powder 17 Gm PO TID Trazodone Hcl 50 Mg Tablet 1 Tab PO QHS Senokot (Sennosides) 8.6 Mg Tablet 1 Tab PO BID Lantus (Insulin Glargine,Hum.rec.anlog) 100 Unit/1 Ml Vial 18 Unit SQ QHS Cipro (Ciprofloxacin Hcl) 250 Mg Tablet 1 Tab PO BID Diflucan (Fluconazole) 150 Mg Tablet 150 Mg PO DAILY Allergies Allergies: Coded Allergies: No Known Drug Allergies (Unverified , 01/08/17) ROS Review of System Shortness of breath and decreased mental status as above. Physical Exam General: Other (on BiPAP with decreased mental status) Lungs: Other (decreased breath sounds) Heart: Other (irregularly irregular) Abdomen: Normal bowel sounds Vitals VITALS Vital Signs Date Time Temp Pulse Resp B/P (MAP) Pulse Ox O2 Delivery O2 Flow Rate FiO2 01/08/17 11:46 100 BiPAP/CPAP 01/08/17 11:00 97.4 98 93/51 (65) 97.4 01/08/17 09:39 27 Labs Labs Laboratory Tests Test 01/08/17 08:00 01/08/17 09:05 01/08/17 09:19 01/08/17 09:31 O2 Saturation 98 % (92-99) Arterial Blood pH 7.11 (7.35-7.45) Arterial Blood pCO2 at Patient Temp 81 mmHg (35-46) Arterial Blood pO2 at Patient Temp 129 mmHg (65-108) Arterial Blood HCO3 25 mmol/L (21-28) Arterial Blood Base Excess -6 mmol/L (-3-3) FiO2 100.0 Prothrombin Time 14.7 SEC (11.7-14.0) Prothromb Time International Ratio 1.2 (0.8-1.1) Activated Partial Thromboplast Time 23 SEC (24-38) Sodium Level 133 mmol/L (136-145) Potassium Level 5.9 mmol/L (3.5-5.1) Chloride Level 99 mmol/L (98-107) Carbon Dioxide Level 30 mmol/L (21-32) Anion Gap 4 (6-14) Blood Urea Nitrogen 95 mg/dL (7-20) Creatinine 2.2 mg/dL (0.6-1.0) Estimated GFR (Cockcroft-Gault) 21.5 BUN/Creatinine Ratio 43 (6-20) Glucose Level 356 mg/dL (70-99) Lactic Acid Level 0.8 mmol/L (0.4-2.0) Calcium Level 9.1 mg/dL (8.5-10.1) Magnesium Level 2.2 mg/dL (1.8-2.4) Total Bilirubin 0.3 mg/dL (0.2-1.0) Aspartate Amino Transf (AST/SGOT) 48 U/L (15-37) Alanine Aminotransferase (ALT/SGPT) 68 U/L (14-59) Alkaline Phosphatase 174 U/L (46-116) Troponin I Quantitative 0.019 ng/mL (0.000-0.055) WB-Auv-N-Type Natriuretic Peptide 6708 pg/mL (0-449) Total Protein 5.7 g/dL (6.4-8.2) Albumin 2.9 g/dL (3.4-5.0) Albumin/Globulin Ratio 1.0 (1.0-1.7) Salicylates Level < 2.8 mg/dL (2.8-20.0) Salicylate Last Dose Date Unknown Salicylate Last Dose Time Unknown Acetaminophen Level 2.6 mcg/ml (10-30) Acetaminophen Last Dose Date Unknown Acetaminophen Last Dose Time Unknown Ethyl Alcohol Level < 10 mg/dL (0-10) Urine Collection Type U cath Urine Color Yellow Urine Clarity Turbid Urine pH 5.0 Urine Specific [place] 1.015 Urine Protein Negative mg/dL (NEG-TRACE) Urine Glucose (UA) 100 mg/dL (NEG) Urine Ketones (Stick) Negative mg/dL (NEG) Urine Blood Small (NEG) Urine Nitrite Negative (NEG) Urine Bilirubin Negative (NEG) Urine Urobilinogen Dipstick 0.2 mg/dL (0.2 mg/dL) Urine Leukocyte Esterase Negative (NEG) Urine RBC 0 /HPF (0-2) Urine WBC 0 /HPF (0-4) Urine Squamous Epithelial Cells Few /LPF Urine Amorphous Sediment Present /HPF Urine Bacteria 0 /HPF (0-FEW) Urine Opiates Screen Pos (NEG) Urine Methadone Screen Neg (NEG) Urine Barbiturates Neg (NEG) Urine Phencyclidine Screen Neg (NEG) Urine Amphetamine/Methamphetamine Neg (NEG) Urine Benzodiazepines Screen Neg (NEG) Urine Cocaine Screen Neg (NEG) Urine Cannabinoids Screen Neg (NEG) Urine Ethyl Alcohol Neg (NEG) Glucose (Fingerstick) 289 mg/dL (70-99) Test 01/08/17 10:00 01/08/17 13:15 O2 Saturation 99 % (92-99) Arterial Blood pH 7.37 (7.35-7.45) Arterial Blood pH (Temp corrected) 7.41 Arterial Blood pCO2 at Patient Temp 40 mmHg (35-46) Arterial Blood pCO2 (Temp correct) 36 mmHg Arterial Blood pO2 at Patient Temp 150 mmHg (65-108) Arterial Blood pO2 (Temp corrected) 135 mmHg Arterial Blood HCO3 23 mmol/L (21-28) Arterial Blood Base Excess -3 mmol/L (-3-3) FiO2 40.0 White Blood Count 10.1 x10^3/uL (4.0-11.0) Red Blood Count 3.15 x10^6/uL (3.50-5.40) Hemoglobin 10.6 g/dL (12.0-15.5) Hematocrit 32.3 % (36.0-47.0) Mean Corpuscular Volume 102 fL (79-100) Mean Corpuscular Hemoglobin 34 pg (25-35) Mean Corpuscular Hemoglobin Concent 33 g/dL (31-37) Red Cell Distribution Width 16.0 % (11.5-14.5) Platelet Count 159 x10^3/uL (140-400) Neutrophils (%) (Auto) 90 % (31-73) Lymphocytes (%) (Auto) 5 % (24-48) Monocytes (%) (Auto) 4 % (0-9) Eosinophils (%) (Auto) 0 % (0-3) Basophils (%) (Auto) 0 % (0-3) Neutrophils # (Auto) 9.2 x10^3uL (1.8-7.7) Lymphocytes # (Auto) 0.5 x10^3/uL (1.0-4.8) Monocytes # (Auto) 0.4 x10^3/uL (0.0-1.1) Eosinophils # (Auto) 0.0 x10^3/uL (0.0-0.7) Basophils # (Auto) 0.0 x10^3/uL (0.0-0.2) Laboratory Tests Test 01/08/17 08:00 01/08/17 09:05 01/08/17 09:19 01/08/17 09:31 O2 Saturation 98 % (92-99) Arterial Blood pH 7.11 (7.35-7.45) Arterial Blood pCO2 at Patient Temp 81 mmHg (35-46) Arterial Blood pO2 at Patient Temp 129 mmHg (65-108) Arterial Blood HCO3 25 mmol/L (21-28) Arterial Blood Base Excess -6 mmol/L (-3-3) FiO2 100.0 Prothrombin Time 14.7 SEC (11.7-14.0) Prothromb Time International Ratio 1.2 (0.8-1.1) Activated Partial Thromboplast Time 23 SEC (24-38) Sodium Level 133 mmol/L (136-145) Potassium Level 5.9 mmol/L (3.5-5.1) Chloride Level 99 mmol/L (98-107) Carbon Dioxide Level 30 mmol/L (21-32) Anion Gap 4 (6-14) Blood Urea Nitrogen 95 mg/dL (7-20) Creatinine 2.2 mg/dL (0.6-1.0) Estimated GFR (Cockcroft-Gault) 21.5 BUN/Creatinine Ratio 43 (6-20) Glucose Level 356 mg/dL (70-99) Lactic Acid Level 0.8 mmol/L (0.4-2.0) Calcium Level 9.1 mg/dL (8.5-10.1) Magnesium Level 2.2 mg/dL (1.8-2.4) Total Bilirubin 0.3 mg/dL (0.2-1.0) Aspartate Amino Transf (AST/SGOT) 48 U/L (15-37) Alanine Aminotransferase (ALT/SGPT) 68 U/L (14-59) Alkaline Phosphatase 174 U/L (46-116) Troponin I Quantitative 0.019 ng/mL (0.000-0.055) XL-Qsg-O-Type Natriuretic Peptide 6708 pg/mL (0-449) Total Protein 5.7 g/dL (6.4-8.2) Albumin 2.9 g/dL (3.4-5.0) Albumin/Globulin Ratio 1.0 (1.0-1.7) Salicylates Level < 2.8 mg/dL (2.8-20.0) Salicylate Last Dose Date Unknown Salicylate Last Dose Time Unknown Acetaminophen Level 2.6 mcg/ml (10-30) Acetaminophen Last Dose Date Unknown Acetaminophen Last Dose Time Unknown Ethyl Alcohol Level < 10 mg/dL (0-10) Urine Collection Type U cath Urine Color Yellow Urine Clarity Turbid Urine pH 5.0 Urine Specific [place] 1.015 Urine Protein Negative mg/dL (NEG-TRACE) Urine Glucose (UA) 100 mg/dL (NEG) Urine Ketones (Stick) Negative mg/dL (NEG) Urine Blood Small (NEG) Urine Nitrite Negative (NEG) Urine Bilirubin Negative (NEG) Urine Urobilinogen Dipstick 0.2 mg/dL (0.2 mg/dL) Urine Leukocyte Esterase Negative (NEG) Urine RBC 0 /HPF (0-2) Urine WBC 0 /HPF (0-4) Urine Squamous Epithelial Cells Few /LPF Urine Amorphous Sediment Present /HPF Urine Bacteria 0 /HPF (0-FEW) Urine Opiates Screen Pos (NEG) Urine Methadone Screen Neg (NEG) Urine Barbiturates Neg (NEG) Urine Phencyclidine Screen Neg (NEG) Urine Amphetamine/Methamphetamine Neg (NEG) Urine Benzodiazepines Screen Neg (NEG) Urine Cocaine Screen Neg (NEG) Urine Cannabinoids Screen Neg (NEG) Urine Ethyl Alcohol Neg (NEG) Glucose (Fingerstick) 289 mg/dL (70-99) Test 01/08/17 10:00 01/08/17 13:15 O2 Saturation 99 % (92-99) Arterial Blood pH 7.37 (7.35-7.45) Arterial Blood pH (Temp corrected) 7.41 Arterial Blood pCO2 at Patient Temp 40 mmHg (35-46) Arterial Blood pCO2 (Temp correct) 36 mmHg Arterial Blood pO2 at Patient Temp 150 mmHg (65-108) Arterial Blood pO2 (Temp corrected) 135 mmHg Arterial Blood HCO3 23 mmol/L (21-28) Arterial Blood Base Excess -3 mmol/L (-3-3) FiO2 40.0 White Blood Count 10.1 x10^3/uL (4.0-11.0) Red Blood Count 3.15 x10^6/uL (3.50-5.40) Hemoglobin 10.6 g/dL (12.0-15.5) Hematocrit 32.3 % (36.0-47.0) Mean Corpuscular Volume 102 fL (79-100) Mean Corpuscular Hemoglobin 34 pg (25-35) Mean Corpuscular Hemoglobin Concent 33 g/dL (31-37) Red Cell Distribution Width 16.0 % (11.5-14.5) Platelet Count 159 x10^3/uL (140-400) Neutrophils (%) (Auto) 90 % (31-73) Lymphocytes (%) (Auto) 5 % (24-48) Monocytes (%) (Auto) 4 % (0-9) Eosinophils (%) (Auto) 0 % (0-3) Basophils (%) (Auto) 0 % (0-3) Neutrophils # (Auto) 9.2 x10^3uL (1.8-7.7) Lymphocytes # (Auto) 0.5 x10^3/uL (1.0-4.8) Monocytes # (Auto) 0.4 x10^3/uL (0.0-1.1) Eosinophils # (Auto) 0.0 x10^3/uL (0.0-0.7) Basophils # (Auto) 0.0 x10^3/uL (0.0-0.2) Images Images Pending Assessment/Plan Assessment/Plan 1. Acute respiratory failure. Patient has been stabilized on BiPAP. Pulmonary has seen and evaluated the patient. We'll continue as per their recommendations. 2. Probable acute on chronic diastolic heart failure. Will treat with mild diuresis as blood pressure allows. We'll attempt to obtain old records. We'll check an echocardiogram. 3. Atrial fibrillation. Rate under control. No acute ischemic changes on EKG. Continue as above. 4. Decreased mental status. Probably secondary to respiratory failure as above. We'll continue to monitor. Thank you for allowing us to participate in the care of your patient. PHOEBE REECE MD Jan 08, 2017 14:22
[2017-01-08 14:47] LABS: PLT ESTIMATE ADEQUATE (ADEQUATE); POLYCHROMASIA SLIGHT; TOXIC GRANULATION SLIGHT
[2017-01-08] MEDS ORDERED: NOREPINEPHRIN PREMIX 250 ML IV PRN (15:30)
[2017-01-08] MEDS ORDERED: DOCUSATE SODIUM 100 MG CAPSULE. PO PRN (16:15)
[2017-01-08] MEDS ORDERED: hydrALAZINE 20 MG/ML VIAL. IVP PRN (16:15)
[2017-01-08] MEDS ORDERED: BISACODYL 10 MG SUPP.RECT. RC PRN (16:15)
[2017-01-08] MEDS ORDERED: IPRATRPIUM/ALBUTEROL 0.5/2.5MG 3 ML NEBU. NEB SCH (16:15)
[2017-01-08] MEDS ORDERED: traMADol 50 MG TABLET PO PRN (16:15)
[2017-01-08] MEDS ORDERED: ALBUTEROL SULFATE 2.5 MG/3 ML NEBU. NEB PRN (16:15)
--- NOTE | 2017-01-08 16:36 | PDOC1 ---
History and Physical Date of Admission Date of Admission 01/08/17 Identification/Chief Complaint Chief Complaint sob Problems: Source Source: Chart review, Patient History of Present Illness History of Present Illness 81yo F, transferred from SNF for sob. PT IS on bipap now, mild lethargic, cannot contribute a good history. as per ERP AND ICU nurse, pt also admitted sob for 3 days, with some cough and mucus, no fever, chills, no chest pain. She fell yesterday in the SNF, no details can be obtained. SNF sent her here since low sat, lethargic and sob. ABG showed PH 7.11, pco2 80s. Pt is on bipap now, said sob is slightly better. but cannot tell me how she fell. + back pain. CT showed extra and intracranial embolism. Soft tissue window images show bubbles of gas in the soft tissues bilaterally. Bubbles are clearly within vascular spaces on some images the most likely etiology would be an air embolization. There are bubbles of gas adjacent to the submandibular gland on the left and the extracranial soft tissues the temporal region on the right and on the left again in the vascular spaces. There is a single bubble of air intracranially near the sella. A soft tissue mass is not identified in the facial region. Past Medical History Cardiovascular: AFIB Pulmonary: No pertinent hx, COPD, Other (suspected KAYLEIGH) GI: No pertinent hx Heme/Onc: No pertinent hx Past Surgical History Past Surgical History: No pertinent history Family History Family History: Hypertension Social History Smoke: # pack years (5-10) ALCOHOL: social Current Problem List Problem List Problems Medical Problems: (1) Acute respiratory failure Status: Acute Current Medications Current Medications Current Medications Medications (Trade) Dose Ordered Sig/Maria G Start Time Stop Time Status Last Admin Dose Admin Acetaminophen (Tylenol) 650 mg PRN Q4HRS PRN 01/08/17 09:15 01/09/17 09:14 Albuterol/ Ipratropium (Duoneb) 3 ml 1X ONCE 01/08/17 09:30 01/08/17 09:39 DC Dextrose (Dextrose 50%-Water Syringe) 12.5 gm PRN Q15MIN PRN 01/08/17 09:45 Furosemide (Lasix) 80 mg 1X ONCE 01/08/17 08:45 01/08/17 08:46 DC 01/08/17 09:30 80 MG Insulin Aspart (NovoLOG) 0-5 UNITS TIDWMEALS 01/08/17 12:00 Levofloxacin/ Dextrose 150 ml @ 100 mls/hr Q48H 01/10/17 09:00 Levofloxacin/ Dextrose (Levaquin Per Pharmacy) 1 each PRN DAILY PRN 01/08/17 09:00 Methylprednisolone Sodium Succinate (SOLU-Medrol 125MG VIAL) 125 mg 1X ONCE 01/08/17 09:30 01/08/17 09:41 DC Midazolam HCl 100 ml @ 0 mls/hr 1X ONCE 01/08/17 08:30 01/08/17 08:31 DC Morphine Sulfate 2 mg PRN Q2HR PRN 01/08/17 09:15 01/09/17 09:14 Naloxone HCl (Narcan) 2 mg 1X ONCE 01/08/17 10:45 01/08/17 10:50 DC 01/08/17 08:07 2 MG Norepinephrine Bitartrate 250 ml @ 0 mls/hr CONT PRN 01/08/17 15:30 Ondansetron HCl (Zofran) 4 mg PRN Q8HRS PRN 01/08/17 09:15 01/09/17 09:14 Piperacillin Sod/ Tazobactam Sod (Zosyn Per Pharmacy) 1 each PRN DAILY PRN 01/08/17 09:00 Piperacillin Sod/ Tazobactam Sod 3.375 gm/Sodium Chloride 50 ml @ 100 mls/hr Q6HRS 01/08/17 17:00 Piperacillin Sod/ Tazobactam Sod 4.5 gm/Sodium Chloride 100 ml @ 200 mls/hr 1X ONCE 01/08/17 09:15 01/08/17 09:44 DC 01/08/17 09:49 200 MLS/HR Vancomycin HCl 1 each 1X ONCE 01/10/17 14:30 01/10/17 14:31 Vancomycin HCl (Vanco Per Pharmacy) 1 each PRN DAILY PRN 01/08/17 09:00 01/08/17 15:00 1 EACH Vancomycin HCl 2 gm/Sodium Chloride 500 ml @ 250 mls/hr Q24H 01/09/17 15:00 Allergies Allergies Allergies Coded Allergies Type Severity Reaction Last Updated Verified No Known Drug Allergies 01/08/17 No ROS Review of System CONSTITUTIONAL: No fever or chills EYES: No recent changes SKIN: No rash or itching CARDIOVASCULAR: No chest pain, syncope, palpitations, or edema RESPIRATORY: No SOB or cough GASTROINTESTINAL: No nausea, vomiting or abdominal pain NEUROLOGICAL: No headaches or weakness ENDOCRINE: No cold or heat intolerance GENITOURINARY: No urgency or frequency of urination MUSCULOSKELETAL: No back pain or joint pain LYMPHATICS: No enlarged lymph nodes PSYCHIATRIC: No anxiety or depression Physical Exam Physical Exam GEN.: No apparent distress. lethargic, arousable, not answer questions well. HEENT: Head is normocephalic, atraumatic NECK: Supple. LUNGS: bl coarse bs HEART: RRR, S1, S2 present. Peripheral pulses intact ABDOMEN: Soft, nontender. Positive bowel sounds. EXTREMITIES: Without any cyanosis. bl leg wounds NEUROLOGIC: Normal speech, normal tone PSYCHIATRIC: Normal affect, normal mood. SKIN: No ulcerations Vitals Vitals Vital Signs Date Time Temp Pulse Resp B/P (MAP) Pulse Ox O2 Delivery O2 Flow Rate FiO2 01/08/17 15:28 100 BiPAP/CPAP 01/08/17 11:00 97.0 96 20 93/51 (65) 97.0 Labs Labs Laboratory Tests Test 01/08/17 08:00 01/08/17 09:05 01/08/17 09:19 01/08/17 09:31 O2 Saturation 98 % (92-99) Arterial Blood pH 7.11 (7.35-7.45) Arterial Blood pCO2 at Patient Temp 81 mmHg (35-46) Arterial Blood pO2 at Patient Temp 129 mmHg (65-108) Arterial Blood HCO3 25 mmol/L (21-28) Arterial Blood Base Excess -6 mmol/L (-3-3) FiO2 100.0 Prothrombin Time 14.7 SEC (11.7-14.0) Prothromb Time International Ratio 1.2 (0.8-1.1) Activated Partial Thromboplast Time 23 SEC (24-38) Sodium Level 133 mmol/L (136-145) Potassium Level 5.9 mmol/L (3.5-5.1) Chloride Level 99 mmol/L (98-107) Carbon Dioxide Level 30 mmol/L (21-32) Anion Gap 4 (6-14) Blood Urea Nitrogen 95 mg/dL (7-20) Creatinine 2.2 mg/dL (0.6-1.0) Estimated GFR (Cockcroft-Gault) 21.5 BUN/Creatinine Ratio 43 (6-20) Glucose Level 356 mg/dL (70-99) Lactic Acid Level 0.8 mmol/L (0.4-2.0) Calcium Level 9.1 mg/dL (8.5-10.1) Magnesium Level 2.2 mg/dL (1.8-2.4) Total Bilirubin 0.3 mg/dL (0.2-1.0) Aspartate Amino Transf (AST/SGOT) 48 U/L (15-37) Alanine Aminotransferase (ALT/SGPT) 68 U/L (14-59) Alkaline Phosphatase 174 U/L (46-116) Troponin I Quantitative 0.019 ng/mL (0.000-0.055) GR-Poa-L-Type Natriuretic Peptide 6708 pg/mL (0-449) Total Protein 5.7 g/dL (6.4-8.2) Albumin 2.9 g/dL (3.4-5.0) Albumin/Globulin Ratio 1.0 (1.0-1.7) Salicylates Level < 2.8 mg/dL (2.8-20.0) Salicylate Last Dose Date Unknown Salicylate Last Dose Time Unknown Acetaminophen Level 2.6 mcg/ml (10-30) Acetaminophen Last Dose Date Unknown Acetaminophen Last Dose Time Unknown Ethyl Alcohol Level < 10 mg/dL (0-10) Urine Collection Type U cath Urine Color Yellow Urine Clarity Turbid Urine pH 5.0 Urine Specific Bolton 1.015 Urine Protein Negative mg/dL (NEG-TRACE) Urine Glucose (UA) 100 mg/dL (NEG) Urine Ketones (Stick) Negative mg/dL (NEG) Urine Blood Small (NEG) Urine Nitrite Negative (NEG) Urine Bilirubin Negative (NEG) Urine Urobilinogen Dipstick 0.2 mg/dL (0.2 mg/dL) Urine Leukocyte Esterase Negative (NEG) Urine RBC 0 /HPF (0-2) Urine WBC 0 /HPF (0-4) Urine Squamous Epithelial Cells Few /LPF Urine Amorphous Sediment Present /HPF Urine Bacteria 0 /HPF (0-FEW) Urine Opiates Screen Pos (NEG) Urine Methadone Screen Neg (NEG) Urine Barbiturates Neg (NEG) Urine Phencyclidine Screen Neg (NEG) Urine Amphetamine/Methamphetamine Neg (NEG) Urine Benzodiazepines Screen Neg (NEG) Urine Cocaine Screen Neg (NEG) Urine Cannabinoids Screen Neg (NEG) Urine Ethyl Alcohol Neg (NEG) Glucose (Fingerstick) 289 mg/dL (70-99) Test 01/08/17 10:00 01/08/17 13:15 01/08/17 15:30 O2 Saturation 99 % (92-99) Arterial Blood pH 7.37 (7.35-7.45) Arterial Blood pH (Temp corrected) 7.41 Arterial Blood pCO2 at Patient Temp 40 mmHg (35-46) Arterial Blood pCO2 (Temp correct) 36 mmHg Arterial Blood pO2 at Patient Temp 150 mmHg (65-108) Arterial Blood pO2 (Temp corrected) 135 mmHg Arterial Blood HCO3 23 mmol/L (21-28) Arterial Blood Base Excess -3 mmol/L (-3-3) FiO2 40.0 White Blood Count 10.1 x10^3/uL (4.0-11.0) Red Blood Count 3.15 x10^6/uL (3.50-5.40) Hemoglobin 10.6 g/dL (12.0-15.5) Hematocrit 32.3 % (36.0-47.0) Mean Corpuscular Volume 102 fL (79-100) Mean Corpuscular Hemoglobin 34 pg (25-35) Mean Corpuscular Hemoglobin Concent 33 g/dL (31-37) Red Cell Distribution Width 16.0 % (11.5-14.5) Platelet Count 159 x10^3/uL (140-400) Neutrophils (%) (Auto) 90 % (31-73) Lymphocytes (%) (Auto) 5 % (24-48) Monocytes (%) (Auto) 4 % (0-9) Eosinophils (%) (Auto) 0 % (0-3) Basophils (%) (Auto) 0 % (0-3) Neutrophils # (Auto) 9.2 x10^3uL (1.8-7.7) Lymphocytes # (Auto) 0.5 x10^3/uL (1.0-4.8) Monocytes # (Auto) 0.4 x10^3/uL (0.0-1.1) Eosinophils # (Auto) 0.0 x10^3/uL (0.0-0.7) Basophils # (Auto) 0.0 x10^3/uL (0.0-0.2) Segmented Neutrophils % 91 % (35-66) Band Neutrophils % 3 % (0-9) Lymphocytes % 3 % (24-48) Monocytes % 3 % (0-10) Toxic Granulation Slight Platelet Estimate Adequate (ADEQUATE) Polychromasia Slight Lactic Acid Level 0.9 mmol/L (0.4-2.0) Troponin I Quantitative < 0.017 ng/mL (0.000-0.055) Laboratory Tests Test 01/08/17 08:00 01/08/17 09:05 01/08/17 09:19 01/08/17 09:31 O2 Saturation 98 % (92-99) Arterial Blood pH 7.11 (7.35-7.45) Arterial Blood pCO2 at Patient Temp 81 mmHg (35-46) Arterial Blood pO2 at Patient Temp 129 mmHg (65-108) Arterial Blood HCO3 25 mmol/L (21-28) Arterial Blood Base Excess -6 mmol/L (-3-3) FiO2 100.0 Prothrombin Time 14.7 SEC (11.7-14.0) Prothromb Time International Ratio 1.2 (0.8-1.1) Activated Partial Thromboplast Time 23 SEC (24-38) Sodium Level 133 mmol/L (136-145) Potassium Level 5.9 mmol/L (3.5-5.1) Chloride Level 99 mmol/L (98-107) Carbon Dioxide Level 30 mmol/L (21-32) Anion Gap 4 (6-14) Blood Urea Nitrogen 95 mg/dL (7-20) Creatinine 2.2 mg/dL (0.6-1.0) Estimated GFR (Cockcroft-Gault) 21.5 BUN/Creatinine Ratio 43 (6-20) Glucose Level 356 mg/dL (70-99) Lactic Acid Level 0.8 mmol/L (0.4-2.0) Calcium Level 9.1 mg/dL (8.5-10.1) Magnesium Level 2.2 mg/dL (1.8-2.4) Total Bilirubin 0.3 mg/dL (0.2-1.0) Aspartate Amino Transf (AST/SGOT) 48 U/L (15-37) Alanine Aminotransferase (ALT/SGPT) 68 U/L (14-59) Alkaline Phosphatase 174 U/L (46-116) Troponin I Quantitative 0.019 ng/mL (0.000-0.055) GR-Ljo-F-Type Natriuretic Peptide 6708 pg/mL (0-449) Total Protein 5.7 g/dL (6.4-8.2) Albumin 2.9 g/dL (3.4-5.0) Albumin/Globulin Ratio 1.0 (1.0-1.7) Salicylates Level < 2.8 mg/dL (2.8-20.0) Salicylate Last Dose Date Unknown Salicylate Last Dose Time Unknown Acetaminophen Level 2.6 mcg/ml (10-30) Acetaminophen Last Dose Date Unknown Acetaminophen Last Dose Time Unknown Ethyl Alcohol Level < 10 mg/dL (0-10) Urine Collection Type U cath Urine Color Yellow Urine Clarity Turbid Urine pH 5.0 Urine Specific Bolton 1.015 Urine Protein Negative mg/dL (NEG-TRACE) Urine Glucose (UA) 100 mg/dL (NEG) Urine Ketones (Stick) Negative mg/dL (NEG) Urine Blood Small (NEG) Urine Nitrite Negative (NEG) Urine Bilirubin Negative (NEG) Urine Urobilinogen Dipstick 0.2 mg/dL (0.2 mg/dL) Urine Leukocyte Esterase Negative (NEG) Urine RBC 0 /HPF (0-2) Urine WBC 0 /HPF (0-4) Urine Squamous Epithelial Cells Few /LPF Urine Amorphous Sediment Present /HPF Urine Bacteria 0 /HPF (0-FEW) Urine Opiates Screen Pos (NEG) Urine Methadone Screen Neg (NEG) Urine Barbiturates Neg (NEG) Urine Phencyclidine Screen Neg (NEG) Urine Amphetamine/Methamphetamine Neg (NEG) Urine Benzodiazepines Screen Neg (NEG) Urine Cocaine Screen Neg (NEG) Urine Cannabinoids Screen Neg (NEG) Urine Ethyl Alcohol Neg (NEG) Glucose (Fingerstick) 289 mg/dL (70-99) Test 01/08/17 10:00 01/08/17 13:15 01/08/17 15:30 O2 Saturation 99 % (92-99) Arterial Blood pH 7.37 (7.35-7.45) Arterial Blood pH (Temp corrected) 7.41 Arterial Blood pCO2 at Patient Temp 40 mmHg (35-46) Arterial Blood pCO2 (Temp correct) 36 mmHg Arterial Blood pO2 at Patient Temp 150 mmHg (65-108) Arterial Blood pO2 (Temp corrected) 135 mmHg Arterial Blood HCO3 23 mmol/L (21-28) Arterial Blood Base Excess -3 mmol/L (-3-3) FiO2 40.0 White Blood Count 10.1 x10^3/uL (4.0-11.0) Red Blood Count 3.15 x10^6/uL (3.50-5.40) Hemoglobin 10.6 g/dL (12.0-15.5) Hematocrit 32.3 % (36.0-47.0) Mean Corpuscular Volume 102 fL (79-100) Mean Corpuscular Hemoglobin 34 pg (25-35) Mean Corpuscular Hemoglobin Concent 33 g/dL (31-37) Red Cell Distribution Width 16.0 % (11.5-14.5) Platelet Count 159 x10^3/uL (140-400) Neutrophils (%) (Auto) 90 % (31-73) Lymphocytes (%) (Auto) 5 % (24-48) Monocytes (%) (Auto) 4 % (0-9) Eosinophils (%) (Auto) 0 % (0-3) Basophils (%) (Auto) 0 % (0-3) Neutrophils # (Auto) 9.2 x10^3uL (1.8-7.7) Lymphocytes # (Auto) 0.5 x10^3/uL (1.0-4.8) Monocytes # (Auto) 0.4 x10^3/uL (0.0-1.1) Eosinophils # (Auto) 0.0 x10^3/uL (0.0-0.7) Basophils # (Auto) 0.0 x10^3/uL (0.0-0.2) Segmented Neutrophils % 91 % (35-66) Band Neutrophils % 3 % (0-9) Lymphocytes % 3 % (24-48) Monocytes % 3 % (0-10) Toxic Granulation Slight Platelet Estimate Adequate (ADEQUATE) Polychromasia Slight Lactic Acid Level 0.9 mmol/L (0.4-2.0) Troponin I Quantitative < 0.017 ng/mL (0.000-0.055) VTE Prophylaxis Ordered VTE Prophylaxis Devices: Yes VTE Pharmacological Prophylaxi: No Assessment/Plan Assessment/Plan acute resp failure hypercapnia , copd exacerbation diastolic CHF exacerbation possibly PAFIB hypotension, possible with sepsis, CHF, also post lasix in ER bl leg wounds with cellulitis DM2 HTN 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 hyperkalemia intra and extracranial air embolism mild malnutrition plan: fu with card, pulm, will get vascular, renal consult hold most po meds, given low bp ICU care with bipap duoneb pressors if needed to keep MAP >65 monitor urine output got lasix 80mg iv x1 in ER, will give kayexalate for high K NPO keep bipap on levaquin, zosyn ,vanoco for now, wound care hold insulin, only SSI labs daily METOprolol iv prn if HR >130 and BP good, otherwise will use dig for afib, cont eliquis for now vascular called, recommend to go to [facility] given we dont have ENT WILL arrange for transfer critical care 35min MEJIA MACIAS MD Jan 08, 2017 16:36
[2017-01-08] MEDS ORDERED: METOPROLOL TARTRATE 5 MG/5 ML VIAL. IVP PRN (16:45)
[2017-01-08] MEDS ORDERED: SODIUM POLYSTYRENE SULFONATE 15 GM/60 ML ORAL.SUSP. PO ONE (16:45)
[2017-01-08] MEDS ORDERED: PIPERACILLIN/TAZOBACTAM 3.375 GM in IV NORMAL SALINE 50ML 50 ML IV SCH (17:00)
--- NOTE | 2017-01-08 19:03 | PDOC3 ---
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 PT IS on bipap now, mild lethargic, cannot contribute a good history. as per ERP AND ICU nurse, pt also admitted sob for 3 days, with some cough and mucus, no fever, chills, no chest pain. She fell yesterday in the SNF, no details can be obtained. SNF sent her here since low sat, lethargic and sob. ABG showed PH 7.11, pco2 80s. Pt is on bipap now, said sob is slightly better. but cannot tell me how she fell. + back pain. CT showed extra and intracranial embolism. pt got lasix in ER, afib, HR is ok ,but BP began to drop need pressors, possible sepsis with PNA, and bl leg cellulitis and receiving multiple abx with ID. on BIpap, and ABG is better. but pt still mild confused. given we dont have ENT here, vascular recommend to transfer to [facility]. pt was accepted at 7pm dc time 40min. Problems: Disposition [facility] CONDITION AT DISCHARGE: Stable Scheduled Allopurinol (Allopurinol), 1 TAB PO DAILY, (Reported) Apixaban (Eliquis), 2.5 MG PO BID, (Reported) Aspirin (Aspirin), 1 TAB PO DAILY, (Reported) Atorvastatin Calcium (Atorvastatin Calcium), 1 TAB PO QHS, (Reported) Bumetanide (Bumetanide), 1 TAB PO BID, (Reported) Carvedilol (Carvedilol), 1 TAB PO BID, (Reported) Cholecalciferol (Vitamin D3) (Vitamin D3), 1 TAB PO DAILY, (Reported) Ciprofloxacin Hcl (Cipro), 1 TAB PO BID, (Reported) Diltiazem Hcl (Cardizem Cd), 1 CAP PO DAILY, (Reported) Ferrous Sulfate (Ferrous Sulfate), 1 TAB PO DAILY, (Reported) Fluconazole (Diflucan), 150 MG PO DAILY, (Reported) Insulin Glargine,Hum.rec.anlog (Lantus), 18 UNIT SQ QHS, (Reported) Insulin Lispro (Humalog), 2-10 UNIT SQ TID, (Reported) Lactobacillus Acidophilus (Probiotic), 1 EACH PO BID, (Reported) Melatonin (Melatonin), 5 MG PO QHS, (Reported) Multivitamin (Multivitamins), 1 TAB PO DAILY, (Reported) Nystatin (Nystatin), 1 NATALI TP BID, (Reported) Polyethylene Glycol 3350 (Polyethylene Glycol 3350), 17 GM PO TID, (Reported) Sennosides (Senokot), 1 TAB PO BID, (Reported) Trazodone Hcl (Trazodone Hcl), 1 TAB PO QHS, (Reported) Scheduled PRN Alprazolam (Alprazolam), 1 TAB PO TID PRN for ANXIETY / AGITATION, (Reported) Bisacodyl (Dulcolax), 10 MG RC PRN DAILY PRN for CONSTIPATION, (Reported) Hydrocodone Bit/Acetaminophen (Hydrocodone-Apap 5-325 ), 1 TAB PO PRN Q6HRS PRN for PAIN, (Reported) Magnesium Hydroxide (Milk Of Magnesia), 30 ML PO DAILY PRN for CONSTIPATION, ( Reported) Magnesium Hydroxide/Al Hydrox (Mag-Al Liquid), 30 ML PO Q4HRS PRN for INDIGESTION, (Reported) Na Phos,M-B/Na Phos,Di-Ba (Fleet Enema), 1 EACH RC DAILY PRN for CONSTIPATION, ( Reported) MEJIA MACIAS MD Jan 08, 2017 19:03
[2017-01-08] MEDS ORDERED: APIXABAN 2.5 MG TABLET. PO SCH (21:00)
[2017-01-08] MEDS ORDERED: ATORVASTATIN CALCIUM 40 MG TABLET. PO SCH (21:00)
--- NOTE | 2017-01-09 02:53 | ACF ---
Admission Forms Criteria RESPIRATORY FAILURE [facility] Clinical Indications for Admission to Inpatient Care (Place 'X' for any and all applicable criteria): Hospital admission is needed for appropriate care of the patient because of acute respiratory failure or insufficiency as indicated by ANY ONE of the following(1)(2)(3)(4)(5)(6)(7)(8): [ X]I. Mechanical ventilation needed (acute invasive or noninvasive) [ ]II. Severe ventilation deficit as indicated by ANY ONE of the following (9) [ ]a) Respiratory acidosis (pH less than 7.32 and partial pressure of carbon dioxide greater than 40 mm Hg (5.3 kPa)) [ ]b) Partial pressure of carbon dioxide greater than 44 mm Hg (5.9 kPa ) (new) [ ]c) Airflow measurements less than 25% of predicted (eg, peak expiratory flow rate less than 100 L/minute) [ ]d) Forced vital capacity less than 15 mL/kg of ideal body weight, or 50% decrease in vital capacity from baseline [ ]III. Noncardiac pulmonary edema not resolving with rapid emergency treatment (8) [ ]IV. Severe respiratory distress as indicated by ANY ONE of the following: [ ]a) Severe tachypnea (respiratory rate greater than 30, greater than 45 for 6-month-old, greater than 60 for ) [ ]b) Severe hypoxemia (partial pressure of oxygen less than 50 mm Hg ( 6.7 kPa) on greater than 50% oxygen or partial pressure of oxygen to FIO2 ratio less than 200) [ ]c) Mental status deterioration from respiratory disease [ ]V. Airway obstruction or inadequate protection [A](10)(11) The original [employer] content created by [employer] has been revised. The portions of the content which have been revised are identified through the use of italic text or in bold, and [employer] has neither reviewed nor approved the modified material. All other unmodified content is copyright [employer]. Please see references footnoted in the original [employer] edition 2016 Admission Criteria Met?: Yes RACHEL RAO Jan 09, 2017 02:53
[2017-01-09] MEDS ORDERED: ALLOPURINOL 100 MG TABLET. PO SCH (09:00)
[2017-01-09] MEDS ORDERED: ASPIRIN CHEWABLE 81 MG TABLET. PO SCH (09:00)
[2017-01-09] MEDS ORDERED: VANCOMYCIN 2 GM in IV NORMAL SALINE 500ML BAG 500 ML IV SCH (15:00)
== END 2017-01-08 19:00 | disposition short-term general hospital (02) | DRG 871 ==
LOC: ER 07:48 → 1 WEST ICU 08:14
PROVIDERS: ADMIT Internal Medicine; ATTEND Internal Medicine
PROC: 5A09357 Assistance with Respiratory Ventilation, Less than 24 Consecutive Hours, Continuous Positive Airway Pressure (ICD-10-PCS; principal; 2017-01-08)
DX: A41.9 Sepsis, unspecified organism (principal); G93.40 Encephalopathy, unspecified; I50.33 Acute on chronic diastolic (congestive) heart failure; J96.02 Acute respiratory failure with hypercapnia; T79.0XXA Air embolism (traumatic), initial encounter; J15.9 Unspecified bacterial pneumonia; E44.1 Mild protein-calorie malnutrition; I13.0 Hypertensive heart and chronic kidney disease with heart failure and stage 1 through stage 4 chronic kidney disease, or unspecified chronic kidney disease; L03.116 Cellulitis of left lower limb; L03.115 Cellulitis of right lower limb; J44.1 Chronic obstructive pulmonary disease with (acute) exacerbation; N17.9 Acute kidney failure, unspecified; N18.4 Chronic kidney disease, stage 4 (severe); Z68.43 Body mass index [BMI] 50.0-59.9, adult; Y95 Nosocomial condition; E11.22 Type 2 diabetes mellitus with diabetic chronic kidney disease; E11.65 Type 2 diabetes mellitus with hyperglycemia; E66.01 Morbid (severe) obesity due to excess calories; D64.9 Anemia, unspecified; F41.9 Anxiety disorder, unspecified; E78.00 Pure hypercholesterolemia, unspecified; E87.5 Hyperkalemia; I48.0 Paroxysmal atrial fibrillation; F32.9 Major depressive disorder, single episode, unspecified; M48.02 Spinal stenosis, cervical region; W19.XXXA Unspecified fall, initial encounter; Y92.238 Other place in hospital as the place of occurrence of the external cause; Z87.891 Personal history of nicotine dependence; Z82.49 Family history of ischemic heart disease and other diseases of the circulatory system
CPT/HCPCS: 36415; 36600; 70450; 70486; 71010; 72125; 80053; 80329; 81001; 82805; 82962; 83605; 83735; 83880; 84484; 85007; 85027; 85610; 85730; 87040; 87641; 93005; 94640; 94660; 94760; 96365; 96367; 96375; G0480; G0481; J1815; J1940; J1956; J2310; J2543; J3370; J7040; J7620; 99285-25